=== PATIENT | female | born 1940 | race Caucasian/White ===

== ENCOUNTER 2019-05-23 08:20 | Inpatient (IN) | payer OTHER ==
[~2019-05-23] VITALS: Ht 154.9 cm; Wt 49.1 kg
[2019-05-23 08:23] VITALS: BP 125/52
[2019-05-23] MEDS ORDERED: LIPITOR10 MG PO (08:31)
[2019-05-23] MEDS ORDERED: ARICEPT 5 MG TAB5 MG PO (08:31)
[2019-05-23] MEDS ORDERED: ZOLOFT50 MG PO ×2 (08:32→08:33)
[2019-05-23] MEDS ORDERED: VASOTEC10 MG PO (08:32)
[2019-05-23] MEDS ORDERED: LASIX 20 MG TAB20 MG PO (08:32)
[2019-05-23] MEDS ORDERED: RISPERIDONE 1 MG1 MG PO (08:32)
[2019-05-23] MEDS ORDERED: LOPERAMIDE 2 MG2 M1 PO (08:33)
[2019-05-23] MEDS ORDERED: HALOPERIDOL 1 MG1 MG PO (08:35)
[2019-05-23] MEDS ORDERED: HALOPERIDOL5 MG/1 ML IM (08:36)
[2019-05-23] MEDS ORDERED: LORAZEPAM 22 MG/1 ML IM (08:42)
[2019-05-23] MEDS ORDERED: ATIVAN1 MG PO (08:42)
[2019-05-23 08:43] LABS: URINE BILIRUBIN NEGATIVE (Negative); URINE BLOOD NEGATIVE (Negative); URINE CLARITY CLOUDY; URINE COLOR YELLOW; URINE GLUCOSE-RANDOM* NEGATIVE (Negative); URINE KETONES NEGATIVE (Negative); URINE LEUKOCYTES-REFLEX NEGATIVE (Negative); URINE NITRITE-REFLEX NEGATIVE (Negative); URINE PROTEIN (DIPSTICK) NEGATIVE (Negative); URINE UROBILINOGEN 0.2 E.U./dl (0.2-1.0)
[2019-05-23 09:07] LABS: AMP/METHAMP Negative (Negative); BARBITURATES Negative (Negative); BENZODIAZEPINES Negative (Negative); COCAINE Negative (Negative); METHADONE Negative (Negative); OPIATES Negative (Negative); PCP Negative (Negative)
[2019-05-23 09:10] LABS: ABSOLUTE NEUTROPHILS 5.4 thou/uL (1.4-8.2); BASOPHILS 0.5 % (0.0-2.0); EOSINOPHILS 0.6 % (0.0-3.0); HEMATOCRIT 36.9 % (37.0-47.0); HEMOGLOBIN 12.5 gm/dL (12.0-15.0); LYMPHOCYTES 12.3 % (24.0-44.0); MCH 32.1 pg (26.0-34.0); MCHC 33.9 g/dL (28.0-37.0); MCV 94.7 fL (80.0-100.0); MONOCYTES 9.4 % (1.0-8.0); PLATELET COUNT 129 thou/uL (150-400); POLYS 77.2 % (36.0-66.0); RBC 3.89 mil/uL (4.20-5.00); RDW 13.3 % (10.5-14.5)
[2019-05-23 09:15] LABS: ANION GAP 5 mmol/L (7-16); BUN 24 mg/dL (7-18); CHLORIDE 104 mmol/L (98-107); CO2 33 mmol/L (21-32); CREATININE 0.9 mg/dL (0.6-1.0); GLUCOSE 81 mg/dL (74-106); POTASSIUM 3.4 mmol/L (3.5-5.1); SODIUM 142 mmol/L (136-145)
[2019-05-23 09:21] LABS: ALBUMIN 3.3 g/dL (3.4-5.0); SALICYLATE < 2.8 mg/dL (2.8-20.0); SGOT 14 U/L (15-37); SGPT 19 U/L (30-65); TOTAL PROTEIN 6.4 g/dL (6.4-8.2)
[2019-05-23 09:36] LABS: TOTAL BILIRUBIN 0.2 mg/dL (<0.1-1.0); TROPONIN-I <0.06 ng/mL (<0.06)
--- NOTE | 2019-05-23 09:55 | NUR ---
SPOKE WITH MD, VERBAL ORDER TO D/C 1:1, STATING ITS NOT NECCESSARY AT THIS TIME.FAMILY AT PATIENT BEDSIDE. WILL CONTINUE TO MONITOR.
[2019-05-23 13:16] VITALS: BP 116/53
[2019-05-23 14:32] VITALS: BP 148/68
--- NOTE | 2019-05-23 14:33 | NUR ---
78 YEAR OLD FEMALE ARRIVES TO FLOOR VIA WC FROM ER-ACCOMPNIED BY DAUGHTER GARRET HORVATH. PT REPORTED TO HAVE BEEN BROUGHT TO ER THIS AM BY AMBULANCE FROM [facility] WHERE SHE HAS BEEN RESIDING FOR APPROX 3 WEEKS. PER INFO FROM DAUGHTER AND ED RECORDS PT WAS HAVING AUDITORY AND VISUAL HALLUCINATIONS SEEING BUGS AND DOGS IN ROOM,HEARING MUSIC-LAYED ON FLOOR IN ROOM LAST PM AND REFUSING TO GET UP-GRABBING AT STAFF MEMBERS GLOVES BELIEVING SHE NEEDS THEM BECAUSE SHE IS "INFECTED" AND THAT IS WHY SHE IS HAVING DIARRHEA. DURING ADMIT INTERVIEW OBSERVED TO DROWSY LYING IN BED WITH EYES CLOSED BUT WILL OPEN THEM WITH VERBAL COOMMANDS-PREOCCUPIED WITH DIARRHEA -STATES IS HAVING IT CONSTANTLY HOWEVER DAUGHTER AND NH STAFF DENY STATING SHE HAS HAD REGULAR STOOLS-LAST DIARHEA EPISODE OVER 3 WEEKS AGO-REPORTED TO HAVE BEEN VERY DEPENDENT ON WHO APPROX 2 YEARS AGO-RECENT HOSPITALIZATION AT [facility] FOR CURRENT SYMPTIOMS AND DX WITH DEMENTIA PER DAUGHTER. VS OBTAINED-ORIENTED TO ROOM AND UNIT.
[2019-05-23 20:05] VITALS: BP 115/58
--- NOTE | 2019-05-23 23:41 | NUR ---
Care assumed of patient at 1915: Patient resting in bed at start of shift. Patient assisted to the bathroom, continent of bladder. Patient alert and oriented to person and time. Confusion and disorientation observed. Patient has poor balance and unsteady gait. Was able to ambulate short distance to the bathroom with standby assist x1. Patient compliant with assessment. Denies SI/HI/AH/VH. No delusional behaviors observed. Patient became irritable at times through assessment and interrupted nurse. Patient started to talk about how sex upsets her, men better not come into her room, she feels against rape, etc. Patient was able to be re-directed to join back into conversation. Patient took HS medication without difficulty. Labile mood observed. Declined HS snack. Patient continues to rest quietly in bed.
[2019-05-24 09:14] VITALS: BP 120/69
[2019-05-24 12:19] VITALS: BP 120/69
--- NOTE | 2019-05-24 13:18 | NUR ---
ASSUMED CARE AT 0700 THIS MORNING. PT. VERY CONFUSED, UNABLE TO FIND HER WAY TO THE BATHROOM, DRESS HERSELF OR FIND HER WAY AROUND THE UNIT. SHE ATE MEALS ON THE UNIT, TOOK HER MEDS WITHOUT DIFFICUTLY. HOWEVER, SHE CANNOT FIND HER WAY BACK TO HER ROOM. SHE HAD PACKETS OF JELLY FROM THE KITCHEN AND BLOOD SUGAR CONTROL BOTTLE IN HER POCKETS. CANNOT FOLLOW DIRECTIONS. CONTINUALLY TALKING TO HERSELF. SHE IS CONTINUALLY TALKING ABOUT MEN IN HER ROOM THAT MAY HURT HER. SHE SEEMS PARANOID THAT A MAN WILL HARM HER WHILE SHE IS IN HER ROOM.
--- NOTE | 2019-05-24 13:58 | EKG ---
[address] [place] [address] ELECTROCARDIOGRAM REPORT Name: IDALIA THOMAS Room #: 522A-A ADM IN M.R.#: [id number] Admission: 05/23/19 Attend Phys: Galileo Aggarwal DO Discharge: Date of : 44 Report #: [id number] THIS REPORT FOR: //name// [facility] ED Test Date: 2019-05-23 Test Time: 08:53:33 Pat Name: IDALIA THOMAS Department: Room: [facility] Gender: F Rn Paralegal: caron : 1940 Requested By: Reggie Orozco Order Number: [id number] MD: Carter Self Measurements Intervals [place] Rate: 56 P: 88 MN: 149 QRS: -6 QRSD: 93 T: 42 QT: 448 QTc: 433 Interpretive Statements Sinus rhythm Anterior infarct, old No previous ECG available for comparison Electronically Signed On 05-24-2019 13:58:21 CDT by Carter Self [email or web address] <ELECTRONICALLY SIGNED> By: Carter Self MD, [facility] 05/24/19 1358 [id number] Carter Self MD, FACC /EPI
--- NOTE | 2019-05-24 19:38 | NUR ---
ASSUMED CARE @ 19:15. WANDERING THROUGHOUT THE HALLWAY, QUITE CONFUSED AND FORGETFUL. ASKING ABOUT THE DENTURES THAT HER DAUGHTER TOOK TODAY TO REPAIR. SOMEWHAT CONTINENT WEARS BRIEFS, NEEDS TO BE TOILETED EVERY COUPLE OF HOURS.
[2019-05-24 19:48] VITALS: BP 142/81
--- NOTE | 2019-05-24 23:16 | NUR ---
UNROLLED TOILET PAPER AND PLACED IT ON EVERY SURFACE IN HER BEDROOM, INCLUDING CHAIR, BED, FLOOR, HVAC COUNTER, BATHROOM. WHEN ASKED WHY SHE HAD PUT TOILET PAPER DOWN, SHE SAID IT WAS SLICK AND THAT SHE HAD SHIT AND PISSED. WHEN THIS NURSE SAID THAT I COULD NOT SEE ANYTHING ON THE FLOOR AND CHAIRS, SHE SAID THAT THE BUGS ATE IT. UP OUT OF BED EVERY 30 MINUTES TO THE TOILET, AND UNROLLED TOILET PAPER TO EXCESS AFTER TOILETING. COMPLAINED OF BUGS ON THE FLOOR. OBTAINED AN ORDER FROM [facility] HERNANDEZ FOR 5MG HALODOL Q 8 HOUR P.O. PRN PSYCHOSIS AND COGENTIN P.O. Q 6 HOUR PRN PROPHALAXIS EXTRAPYRAMIDICAL SIDE EFFECT. GIVEN @ 2300 IN ICE CREAM. SITTING AT A TABLE IN THE DAY ROOM. WILL CONTINUE TO MONITOR.
--- NOTE | 2019-05-25 01:34 | NUR ---
WEIGHT 113.5#
[2019-05-25 01:36] VITALS: BP 142/81
--- NOTE | 2019-05-25 02:51 | NUR ---
AT APPROXIMATELY 0230, PATIENT WAS IN ROOM WONDERING AROUND SEEMINGLY FOCUSED ON NEEDING TO USE THE BATHROOM AND INSISTING THAT ANOTHER BED WAS HERS. STAFF ATTEMPTED TO REDIRECT PATIENT WITH NO OUTCOME. SHE BEGAN TO BANG ON THE FURNITURE AND THREATEN STAFF. PRIOR TO THIS INCIDENT, SHE HAD BEEN UP MULTIPLE TIMES DISRUPTING THE MILIEU, PRN HALDOL PO WAS GIVEN WITH NO EFFECT. AGAIN, [facility] RONAK WAS NOTIFIED WITH ORDERS FOR HALDOL 5MG IM Q 6 HOUR PRN FOR AGITATION. ADMINISTERED MEDICATION ORDERED. PATIENT CURRENTLY IN DAY ROOM UNDER OBSERVATION BY STAFF. WILL CONTINUE TO MONITOR.
[2019-05-25 03:30] VITALS: BP 142/81
[2019-05-25 04:30] VITALS: BP 123/60
--- NOTE | 2019-05-25 04:50 | NUR ---
@ 0330 PATIENT WAS SITTING IN A RECLINER IN THE DAY ROOM, EATING GRAHM CRACKERS AND APPLE JUICE/ WATER. THE AIDE STEPPED AWAY FROM THE PATIENT AND WITHIN 2 MINUTES, SHE WAS OBSERVED SITTING ON THE FLOOR IN FRONT OF THE RECLINER. PATIENT ZAIRA RODRIGUEZ, NO BUMPS OR BRUISES NOTED AT THIS TIME, WILL CONTINUE TO MONITOR FOR DEVELOPMENT OF INDICATIONS OF INJURY. Laurel HERNANDEZ NOTIFIED @ 04:15, NO NEW ORDERS. ARPIT HUMZA GROVER NOTIFIED @ 0500 WILL NOTIFY DAUGHTER AT 0600. VS @ 0330 136/71 97 68 97.7 F, 18RR VS @ 04:30 123/60 97.8 F, 85, 95% RA, 14RR
--- NOTE | 2019-05-25 06:08 | NUR ---
SLEPT 2.6 HOURS OVERNIGHT.
--- NOTE | 2019-05-25 06:20 | NUR ---
FAMILY RAJI HORVATH NOTIFIED OF BNON INJURY FALL. 06:15.
[2019-05-25 10:20] VITALS: BP 133/76
--- NOTE | 2019-05-25 16:09 | NUR ---
HAS BEEN VERY RESTLESS/ANXIOUS THROUGHOUT SHIFT-ATTEMPTING TO GET UP OUT OF CHAIR REPEATDLY DESPITE UNSTEADY GAIT AND RECENT FALLS X2-LAP EDUARDO AND CHAIR ALARM ORDERED AND IMPLEMENTED D/T IMPULSIVE,UNSAFE BEHAVIOR-HAS REMOVED LAP EDUARDO SEVERAL TIMES BE SELF-WHEELING WC WITH BRAKES ON INTO PEERS ROOMS OR RAMMING HER WC INTO THEIR SEATS IN DR-UNABLE TO BE REDIRECTED OR DISTRACTED WITH ACTIVITES IE PUZZLE,BLOCKS,MUSIC ETC. HALDOL 5MG GIVEN PO PRN AT O900 AND WAS QUIETER/CALMER/ABLE TO FOLLOW VERBAL COMMANDS UNTIL APPROX 1130-BECAME AGITATED AT [place] THINKING HER FOOD WAS BEING WITHHELD AND ACCUSING STAFF OF NOT FEEDING HER FOR 2 DAYS. CLINICIAN CONTACTED AT 1430 FOR ABOVE NOTED AND O RECEIVED-SEROQUEL [id number] GIVEN AT 1500-REMAINS EXTREMLEY HIGH FALLS RISK AND REQUIRES CONSTANT OBSERVATION TO MAINTAIN SAFTEY
--- NOTE | 2019-05-25 19:07 | H ---
[facility] [place] [address] HISTORY AND PHYSICAL Name: IDALIA THOMAS Room #: 522A-A ADM IN M.R.#: [id number] Admission: 05/23/19 Attend Phys: Galileo Aggarwal DO Discharge: Date of : 44 Report #: [id number] THIS REPORT FOR: //name// CC: Galileo NEGRON Physician staff DATE OF SERVICE: 05/23/2019 INPATIENT PSYCHIATRIC EVALUATION ATTENDING PHYSICIAN: Galileo Aggarwal DO. OUTBOUND SALES CONSULTANT: Hospitalist. REASON FOR ADMISSION: Visual and auditory hallucinations that began a few days prior. HISTORY OF PRESENT ILLNESS: This is a 78-year-old female with established diagnosis of dementia. She was brought to the ED from [facility] and apparently she had been having increased auditory and visual hallucinations. She was recently discharged from [facility] in [place], [place] 05/03/2019. The patient is a [place] of [facility] [employer] [facility] [place], living in [place], [place]. She sees dogs, bugs and hearing music. She reported to the ER she saw hallucinations before being admitted to [facility], in April has a history of dementia, recognizes daughter by name, forgets recent things like what she ate for breakfast, had a cold for a week or two after getting out of the [facility]. She has intermittent diarrhea. She fell 3 days ago, was seen in the [facility] ED. Head scan done at that time. CT of the head, neck and hip and x-ray were negative. There is denial of aggression, physical violence, history of anemia or pain. ALLERGIES: NEFAZODONE. I think also phentermine. REPORTED MEDICATIONS: Aricept 5 mg p.o. daily, Risperdal 1 mg p.o. t.i.d., loperamide 2 mg p.o. daily p.r.n. diarrhea, Haldol 1 mg p.o. q. 4 agitation, lorazepam 1 mg p.o. q. 4 p.r.n. anxiety. REVIEW OF SYSTEMS: From the ED: CONSTITUTIONAL: Denies fever, chills, malaise or unexplained weight change. EYES: Denies eye pain, visual change or discharge. HENT: Denies hearing changes, ear drainage, ear infections, ear pain, neck pain or neck stiffness. RESPIRATORY: Denies cough, shortness of breath, hemoptysis or respiratory distress. CARDIOVASCULAR: Denies chest pain, chest pain with exertion or edema. [address] [address] HISTORY AND PHYSICAL Name: IDALIA THOMAS Room #: 522A-A ADM IN M.R.#: [id number] Admission: 05/23/19 Attend Phys: Galileo Aggarwal, Discharge: Date of : 44 Report #: [id number] GASTROINTESTINAL: Denies abdominal pain, nausea, vomiting or diarrhea. GENITOURINARY: Denies burning, frequency or dysuria. MUSCULOSKELETAL: Denies back pain, joint pain, muscle weakness or myalgias. SKIN: Denies rash. NEUROLOGIC: Denies weakness, headache or loss of consciousness. PSYCHIATRIC: As above. LABORATORY DATA: From the ED, sodium 142, potassium 3.4, chloride 104, bicarbonate 33, BUN 24, creatinine 0.9, GFR 61, glucose 81, calcium 9, magnesium 2. AST 14, ALT 19, alkaline phosphatase 39. Troponin less than 0.06. Total protein 6.4, albumin 3.3. TSH 2.43. White count 7.0, H and H 12.5 and 36.9, platelet count 129, which is low. Urine drug screen negative. Salicylate is negative. Tylenol negative. Urinalysis was negative. IMAGING STUDIES: Chest x-ray done, which was negative. CT of the head showed no acute intracranial process. On interview today, the patient states she at times finds her head falling, landing on the table. She is unsure what that is. She states she has intermittent constipation or diarrhea. MEDICATIONS: From [facility] were atorvastatin 10 mg p.o. every day, Aricept 10 mg p.o. b.i.d., enalapril 10 mg p.o. daily, hypertension, hold if systolic BP less than 120, Lasix 20 mg p.o. daily, risperidone 1 mg p.o. t.i.d., sertraline 150 mg p.o. daily and loperamide 2 mg p.o. daily. MUSCULOSKELETAL: Ambulates with walker, cautious gait. MENTAL STATUS EXAMINATION: This is a well-developed, frail female appearing at least stated age. Attention limited. Concentration limited. Speech is normal rate. Thought process linear and limited. Thought content focussed somatically primarily. No psychomotor agitation. No psychomotor retardation. Denied SI or HI. Denied hopelessness, helplessness, and homicidal intent or plan. Mood and affect were anxious, constricted, congruent. Memory known to be impaired. Insight limited. Judgment impaired. Fund of knowledge below average. FORMULATION: A 78-year-old female admitted for phenomenon of auditory, visual hallucinations. PLAN: Continue famotidine 20 mg p.o. daily, docusate 100 mg p.o. b.i.d., hold if diarrhea. Depakote 750 mg p.o. at bedtime for impulse control, Lasix 20 mg p.o. daily. Regarding the sertraline, we will decrease that to 100 mg daily from 150 for good measure, enalapril 10 mg p.o. daily, potassium chloride has been discontinued, atorvastatin 10 mg p.o. at bedtime. The rest are normal p.r.n.'s [facility] [address] [place] [address] HISTORY AND PHYSICAL Name: IDALIA THOMAS Room #: 522A-A ADM IN [facility]#: [id number] Admission: 05/23/19 Attend Phys: Galileo Aggarwal DO Discharge: Date of : 44 Report #: [id number] ESTIMATED LENGTH OF STAY: 10-14 days. STRENGTHS: She is insured, has supportive family. WEAKNESSES: Multiple recent hospitalizations and advancing disease. <ELECTRONICALLY SIGNED> By: Galileo Aggarwal DO 05/25/19 [id number] Galileo Aggarwal DO /nt
[2019-05-25 19:52] VITALS: BP 121/58
--- NOTE | 2019-05-26 03:31 | NUR ---
RECEIVED RPORT FROM OFFGOING DAY NURSE. ASSUMED CARE @ 19:15. IN W/C WITH LAP EDUARDO IN PLACE. A&O X2 TO PERSON AND ONLY. NOT ORIENTED TO CURRENT DATE, PURPOSE OF HOSPITAL VISIT OR PRESIDENT. REPORTS SEEING INSECTS THAT SHE REPORTS BEING SMALL FLYING SPECK OF A BUG. CONSTANT OBSERVATION REQUIRED TO KEEP PATIENT FROM FALLING OUT OF W/C. CHAIR ALARM IN PLACE WITH ALARM SET. HRRR, LUNGS CTA AND ABD NORMOACTIVE BOWEL SOUNDS. REPEATS OVER AND OVER THAT SHE SHITS AND PISSES ALL DAY AND ALL NIGHT. COALACE HELD. YUANDOL PROVIDED @ 2100 FOR HALLUCINATIONS. EVEN AFTER RETIRING TO BED, CONTINUED TO GET OUT OF BED Q 15 MINUTES AND AMBULATE TO THE TOILET WITH NO OUT PUT NOTED. NEW ORDER FOR SEROQUEL 25 OBTAINED FROM [facility] HERNANDEZ AND PROVIDED @ 0020 ALONG WITH 650 MG TYLENOL FOR 4/10 BACK PAIN. NOTED TO BE SLEEPING WITHIN A 24 MINUTE INTERVAL. BED IN LOW POSITION, BED ALARM SET, WILL CONTINUE TO MONITOR Q 12 MINUTES FOR PATIENT SAFETY.
--- NOTE | 2019-05-26 06:37 | NUR ---
SLEPT 7.2 HOURS.
[2019-05-26 09:31] VITALS: BP 124/65
--- NOTE | 2019-05-26 10:59 | NUR ---
HAS BEEN SITTING IN WHEELCHAIR IN DAYROOM WITH LAP EDUARDO ON-IS NOTED TO BE ATTEMPTING TO GET UP FREQUENTLY DESPITE UNSTEADY GAIT AND RECENT FALL-HAS REMOVED LAP EDUARDO SEVERAL TIMES ALREADY AND AT ONE POINT REMOVED A MALE PEERS LAP BELT. TAKING AND SINGING ALMOST NON-STOP TO SELF -CONVERSATION INCOHERENT AT TIMES-RAMBLING. DENIES C/O PAIN-IS OBSERVED TO BE FOCUSED ON BOWELS AND PERCEIVED SEVERE DIARRHEA STATING MULTIPLE TIMES "IM SHITTING EVERYWHERE" OR "THE SHIT IS EVERYWHERE" WAS ASSISTED TO BATHROOM AND DID HAVE MEDIUM FORMED BM IN TOILET AND STATES "I TOLD YOU I WAS HAVING DIARRHEA" AMBULATED FREQUNTLY AND TOLERATES THIS ACTIVITY FAIR WITH USE OF ROLLER WALKER AND SBA X1
--- NOTE | 2019-05-26 15:14 | NUR ---
CHIQUITA sent referral to [facility] at the [place] per family request.
--- NOTE | 2019-05-26 17:45 | NUR ---
HALDOL 5MG GIVEN PO PRN AT 1400 FOR INCREASED AGITATION AND PARANOID THOUGHTS. BEGAN YELLING "HELP.HELP AND KNOCKING ON BAEZA IN HALLWAY-ANGRY FACIAL EXPRESSION AND LOUD TONE WHEN APPROACHED BY NURSING STAFF STATES "I AM BEING KEPT PRISONER HERE AND MY DAUGHTER DOESN'T KNOW""YOU ARE NOT ATTENDING TO ME"UNABLE TO REASSURE/REDIRECT"HALDOL 5MG GIVEN PO PRN AT 1415-TYLENOL 625MG GIVEN PO PO PRN AT 1430 FOR REPORTED GENERALIZED JOINT PAIN-UNABLE TO RATE STATING ANGRILY "I DON'T KNOW"
[2019-05-26 19:54] VITALS: BP 120/54
--- NOTE | 2019-05-26 19:58 | NUR ---
ASSUMED CARE @ 19:15, IN W/C IN THE DAY ROOM. CHAIR ALARM IN W/C AND ALARM SET. PATIENT TALKS ABOUT NONSENSICAL UNRELATED VERBAGE. REPORTS THAT SHE HAS NON STOP DIARRHEA, WHICH THE DAY NURSE REORTED TO BE INCORRECT. DAY NURSE REPORTS 2 FORMED BM TODAY. WILL CONTINUE TO MONITOR Q 12 FOR PATIENT SAFETY.
--- NOTE | 2019-05-27 00:15 | NUR ---
PROVIDED PRN SEROQUEL 25 FOR PSYCHOSIS AND AGITATION AND TYLENOL 650 FOR BACKPAIN @ 20:30. PATIENT TOILETED BEFORE BED AND DRESSED IN HER NIGHT CLOTHES. IN BED WITH BED IN LOW POSITION AND BED ALARM ON. WILL CONTINUE TO MONITOR Q 12 MINUTES FOR PATIENT SAFETY.
[2019-05-27 01:02] VITALS: BP 120/54
--- NOTE | 2019-05-27 05:46 | NUR ---
SLEPT 6.8 HOURS.
--- NOTE | 2019-05-27 06:45 | NUR ---
PRN SEROQUEL 25 GIVEN FOR ANXIETY AND PSYCHOSIS. TYLENOL 650 PROVIDED FOR 4/10 KNEE PAIN @ 05:15.
[2019-05-27 09:01] VITALS: BP 119/65
--- NOTE | 2019-05-27 11:57 | NUR ---
0700: Report rec from noc shift, care assumed. [id number]: Mobile in w/c, transfers with 1 assist, oriented to name only, hyper verbalization noted, some appropriate and related to conversation, other times rambling words and no topic noted. Feeds self with set-up assistance, takes meds whole w/o difficulty. Attends 0900 therapy group, minimal participation noted, denies pain or discomfort. Cooperative with staff and easily re-directed.
[2019-05-27 20:16] VITALS: BP 134/56
--- NOTE | 2019-05-27 22:27 | NUR ---
PT PROPELING SELF IN W/C. WITH CHAIR ALARM AND LAP BELT ON. PT REQUESTED HS MEDS SO SHE COULD LAY DOWN. PT LAYED IN BED FOR APPROXIMATELY AN HOUR AND WAS UP TO URINATE X 2. PT THEN IN W/C IN DAY ROOM TO WATCH TV. PT STATED SHE DOES NOT LIKE HER BED. PT CALM, [facility] CONTACT, PT SHARED STORY OF LIVING IN [facility] AND THAT SHE HAD RED HAIR AND FRECKLES, THAT HER DAUGHTER HAS BLACK HAIR. PT REQUESTED A PAIR OF SCISSORS TO TRIM HER GROIN AREA WHILE SHE WAS BEING ASSISTED TO THE RESTROOM.
--- NOTE | 2019-05-27 23:29 | NUR ---
PT RESTLESS, PROPELING SELF IN KURTZ AND INTO PEERS ROOM OR DAYROOM, TALKING TO HERSELF, PICKING AT HER NAILS, YELLING AT TV. TOLD STAFF SHE DOES NOT HAVE A PLACE TO LIVE AND HER BELONGINGS ARE IN STORAGE AND THEY ARE MAKING HER SELL THEM. PRN PROVIDED FOR INCREASED ANXIETY/RESTLESS.
[2019-05-28 08:44] VITALS: BP 134/68
--- NOTE | 2019-05-28 16:53 | NUR ---
SW sent a referral to [facility] concerning pt being accepted into [facility]. CHIQUITA will follow-up with the [facility] on tomorrow.
--- NOTE | 2019-05-28 17:22 | NUR ---
ASSUMED CARE AT 0700 THIS MORNING. PT. UP ON THE UNIT. SHE CONTINUES TO BE CONFUSED. SHE IS SITTING IN A WHEELCHAIR SHE IS UNSTEADY ON HER FEET. SHE ATE ON THE UNIT, TOOK MEDS WITHOUT DIFFICULTIES. SHE DID ATTEND GROUPS. NO S/S SI/HI OR AVH NOTED TODAY. SHE HAS BEEN PLEASANT UPON APPROACH BUT IS ONLY ORIENTED X 1 OR 2.
[2019-05-28 20:02] VITALS: BP 125/52; BP 97/51
--- NOTE | 2019-05-28 21:58 | NUR ---
Propeling self in w/c through halls and day room, talking to herself, clear speech, smiling, good eye contact. Complliant with hs meds and snack. w/c with chair alarm. Steady gait with transfers.
[2019-05-29 19:22] VITALS: BP 136/76
--- NOTE | 2019-05-29 21:34 | NUR ---
ASSUMED CARE @ 19:15. IN W.C. IN DAY ROOM, PEOPLE WATCHING WHICH SHE SAYS IS MORE INTERESTING THAN THE BASEBALL GAME. HRRR, LUNGS CTA, ABD NX 4Q. DENIES SI AND HI. DENIES DEPRESSION AND HALLUCINATIONS. TOOK HS MEDS WHOLE WITH WATER. A&OX2. WHEN ASKED A QUESTIONS ANSWERS IN NONSENSE RAMBLING SPEACH. WILL CONTINUE TO MONITOR Q 12 MINUTES.
[2019-05-29 23:51] VITALS: BP 136/76
--- NOTE | 2019-05-30 02:42 | NUR ---
IN RECLINER IN THE DAY ROOM, AWAKE AND WATCHING TV, TALKING TO STAFF, THEN SLEEPING AND AWAKE @ 0230. WILL CONTINUE TO MONITOR FOR PATIENT SAFETY.
--- NOTE | 2019-05-30 06:30 | NUR ---
slept 1.2 hours overnight.
[2019-05-30 08:03] VITALS: BP 136/67
--- NOTE | 2019-05-30 12:13 | NUR ---
Date of Admission: 05/23/19 Date of Activity Therapy Assessment: 05/26/19 Activity Goal: Increase reality orientation Initial Goal: 1 Group activity/day Weekly progress towards goal: On track Group participation level: Moderate Behaviors observed: Patient attends a minimum of one recreation group per day. Her level of concentration hinders her participation at times (wandering in and out, talking over.) Patient often makes disorienting statements, but none exhibiting ss of hallucinations. Plan: No change towards goal
[2019-05-30 16:03] VITALS: BP 136/67
--- NOTE | 2019-05-30 17:13 | NUR ---
ASSUMED CARE AT 0700 THIS MORNING. PT. IN W/C SHE IS UNSTEADY ON HER FEET. SHE IS ORIENTED TO NAME ONLY. SHE IS ALWAYS BUSY MOVING HER W/C ALL OVER THE UNIT. SHE WILL TELL STAFF WHEN SHE HAS TO GO TO THE BATHROOM AND DOES GO WITH ONE STAND BY ASSIST. SHE HAS BEEN PLEASANT WITH STAFF. TOOK MEDS WITHOUT PROBLEMS NOTED. ATTENDED GROUPS BUT INTERACTS ONLY SOME. DENIES SI/HI AND NOT AVH NOTED TODAY. AT MEALS ON THE UNIT.
[2019-05-30 19:24] VITALS: BP 133/73
--- NOTE | 2019-05-31 01:02 | NUR ---
RECEIVED REPORT FROM OFFGOING DAY NURSE, ASSUMED CARE @ 19:15. IN W/C WITH CHAIR PERSONAL ALARM IN SEAT. PROPELLS SELF THROUGHOUT THE DAY ROOM AND IN THE HALLS. HAS NO COMPREHENSION OF PERSONAL SAFETY, STANDING AND AMBULATING. ALERT, AND ORIENTED TO SELF ONLY. 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 HRRR, LUNGS CTA, ABD NORMOACTIVE, REPORTS A NORMAL BM TODAY, REPORTS NO DIARRHEA. WENT TO BED AND TOOK HS MEDS AND PRN SEROQUEL. WILL CONTINUE TO MONITOR Q 12 MINUTES FOR PATIENT SAFETY. BED ALARM ON, BED IN LOW POSITION.
[2019-05-31 01:56] VITALS: BP 133/73
--- NOTE | 2019-05-31 02:16 | NUR ---
SLEEPING SOUNDLY, EYES CLOSED, RESPIRATIONS EVEN AND UNLABORED. BED IN LOW POSITION, BED ALARM SET, ROUNDING Q 12 MINUTES FOR PATIENT SAFETY.
[2019-05-31 05:34] LABS: CALCIUM 8.5 mg/dL (8.5-10.1); CREATININE 0.9 mg/dL (0.6-1.0); POTASSIUM 4.3 mmol/L (3.5-5.1)
[2019-05-31 05:57] LABS: HEMOGLOBIN 12.7 gm/dL (12.0-15.0); MCH 31.9 pg (26.0-34.0); MCHC 33.5 g/dL (28.0-37.0); RDW 12.8 % (10.5-14.5); WBC 9.3 thou/uL (4.0-11.0)
--- NOTE | 2019-05-31 06:10 | NUR ---
SLEPT 7.6 HOURS OVERNIGHT 05/30/19.
[2019-05-31 07:40] VITALS: BP 123/69
--- NOTE | 2019-05-31 11:17 | NUR ---
SW met with treatment team to discuss with pt been d/c to [facility] on June 01, 2019 at 11:30am. SW will schedule appointment with gynceologist at [facility]. SW schedule appointment for June 13, 2019 at 12:30pm. SW will follow-up. SW mention to the pt that according to her insurance company that she can do therapy, and meeti with psychiatrist through negar on her phone. Pt stated that she will download the negar, and have continuance care.
--- NOTE | 2019-05-31 11:26 | NUR ---
CHIQUITA met with the Treatment team concerning pt d/c to [facility] on June 01, 2019 at 11:30. CHIQUITA explained to the nursing that pt will need to be ready for d/c tomorrow. Pt will be transported by her daughter.
[2019-05-31 13:20] VITALS: BP 123/68
--- NOTE | 2019-05-31 14:47 | NUR ---
ASSUMED CARE AT 0700 TODAY SHE REMAINS IN A W/C DUE TO AN UNSTEADY GAIT. DID WALK TODAY WITH PT. PT. THOUGHT SHE WAS AMBULATING WELL AND DID NOT ALWAYS REQUIRE A W/C. SHE DID TAKE HER MEDICATIONS WHOLE AND WITHOUT PROBLEMS NOTED. SHE ATTENDED GROUPS AND ATE ON THE UNIT. DENIES SEEING BUGS OR OTHER VISUAL HALLUCINATIONS. SHE DENIES SI/HI. HAS NOT BEEN INCONTINENT THROUGHOUT THE DAY TODAY.
[2019-05-31 19:08] VITALS: BP 140/65
--- NOTE | 2019-06-01 06:20 | NUR ---
TOOK HS MEDS WHOLE WITH WATER, SEROQUEL PRN PROVIDED AT HS. IN BED ALL NOC, UP TO TOILET X2 WITH ASSIST. SLEPT 6.4 HOURS.
[2019-06-01 06:52] VITALS: BP 125/67
[2019-06-01 09:04] VITALS: BP 125/67
--- NOTE | 2019-06-01 10:57 | NUR ---
0710: Report rec from noc shift, care assumed. [id number]: Transfers self from bed to standing, uses walker for ambulation, gait steady/slow. Feeds self with set up assistance, appetite fair, takes meds whole w/o difficulty. Mobile throughout common area, socializes with other pts and with staff, confused to surroundings, oriented to name only, forgetful to recent events. Recalls history of family and working history. Cooperative with staff, cheerful, smiles alot at staff.
[2019-06-01] MEDS ORDERED: LIPITOR10 MG PO (11:21)
[2019-06-01] MEDS ORDERED: DEPAKOTE ER250 MG PO (11:23)
[2019-06-01] MEDS ORDERED: VASOTEC10 MG PO (11:23)
[2019-06-01] MEDS ORDERED: SEROQUEL 25 MG25 M1 PO (11:24)
[2019-06-01] MEDS ORDERED: ZOLOFT100 MG PO (11:24)
[2019-06-01] MEDS ORDERED: LASIX 20 MG TAB20 MG PO (11:24)
[2019-06-01] MEDS ORDERED: COLACE 100 MG100 MG PO (11:25)
[2019-06-01] MEDS ORDERED: PEPCID20 MG PO (11:25)
--- NOTE | 2019-06-03 17:06 | D ---
[facility] [place] [address] DISCHARGE SUMMARY Name: IDALIA THOMAS Room #: 522A-A [facility] IN M.R.#: [id number] Admission: 05/23/19 Attend Phys: Galileo Aggarwal DO Discharge: 06/01/19 Date of : 44 Report #: [id number] THIS REPORT FOR: //name// CC: Galileo NEGRON Physician staff DATE OF SERVICE: 06/01/2019 INPATIENT PSYCHIATRIC DISCHARGE SUMMARY ATTENDING PHYSICIAN: Galileo Aggarwal DO [employer] DES[employer]KER: Jaclyn Menezes MD DISCHARGE DIAGNOSES: Major neurocognitive disorder, likely due to Alzheimer's disease with behavioral disturbance, improved. MEDICAL COMORBIDITIES: Include hypokalemia, resolved; thrombocytopenia, 129 was the platelet count; hypertension, well controlled; hyperlipidemia, on atorvastatin. She is known high fall risk. DISCHARGE PLAN: Discharged to the [facility], I believe in [place], [place]. The patient will get memory care there. DISCHARGE MEDICATIONS: As follows: Atorvastatin 10 mg p.o. at bedtime for hyperlipidemia, enalapril 10 mg p.o. daily for hypertension, Depakote ER 750 mg p.o. at bedtime for mood stabilization, sertraline 100 mg p.o. daily for depression, Seroquel 25 mg p.o. q. 6 hours p.r.n. for anxiety and agitation, Lasix 20 mg daily p.r.n. for edema, docusate 100 mg p.o. b.i.d. for bowel motility, and famotidine 20 mg p.o. daily for bowel prophylaxis. LABORATORY DATA: This admission, most recent CBC on 05/31/2019 was white count 9.3, hemoglobin and hematocrit 12.7 and 38.3, platelet count 159 that was well improved from 129 on admission. Regarding electrolytes, her electrolytes improved as well. Sodium 143, potassium 4.3, chloride 107, bicarbonate 28, BUN 32. GFR 61. So the slight hypokalemia, resolved. Urinalysis was negative on 05/28/2019. Toxicology: Depakote level on 05/28/2019 was 69, which is in therapeutic range. Her admission UDS was negative. Urine drug screen was negative. The patient's psychiatric and medical care will be taken care at the [facility]. REASON FOR ADMISSION: She was presented to the ED with family. She had [facility] [address] [place] [address] DISCHARGE SUMMARY Name: IDALIA THOMAS Room #: 522A-A [facility] IN [facility].#: [id number] Admission: 05/23/19 Attend Phys: Galileo Aggarwal DO Discharge: 06/01/19 Date of : 44 Report #: [id number] recently been at [facility]. Apparently, she was having visual and auditory hallucinations that began a few days prior. HOSPITAL COURSE: The patient was admitted to the Geriatric Psych Unit. She had a pretty quiescent course. Given her sensitivity to neuroleptics, I decided to approach ____ problems with Depakote. The visual and auditory hallucinations issues basically self resolved, which does raise the possibility of Lewy body disease given her sensitivity to neuroleptics. She is quite advanced in her dementia with a poor prognosis. Once she stops eating, hospice services should be entertained. PHYSICAL EXAMINATION: VITAL SIGNS: On the day of discharge, temperature 36.6, pulse 58, respirations 14, BP 125/67, O2 sat 97%. MUSCULOSKELETAL: She is wheelchair bound, nonambulatory, appropriately seated. MENTAL STATUS EXAMINATION: This is a well-developed, fairly nourished female appearing stated age. Attention impaired. Concentration impaired. Speech is normal rate. Thought process nonlinear. Thought content, often nonsensical, but able to shake her hands and say "hi." No psychomotor agitation, no psychomotor retardation. Mood and affect was congruent and euthymic. Insight impaired. Judgment impaired. Memory noted to be impaired. Fund of knowledge well below average. Prognosis for this patient is guarded to poor given her age, advanced dementia, and medical comorbidities. <ELECTRONICALLY SIGNED> By: Galileo Aggarwal DO 06/03/19 1706 [id number] Galileo Aggarwal DO /nt
== END 2019-06-01 12:00 | DRG 57 ==
LOC: ER 08:20 → EROBS 10:44 → SBH 10:44
PROVIDERS: Emergency Medicine; Internal Medicine; ADMIT Psychiatry & Neurology Psychiatry
DX: G30.9 Alzheimer's disease, unspecified (principal); F02.81 Dementia in other diseases classified elsewhere, unspecified severity, with behavioral disturbance; F01.50 Vascular dementia, unspecified severity, without behavioral disturbance, psychotic disturbance, mood disturbance, and anxiety; I10 Essential (primary) hypertension; F32.9 Major depressive disorder, single episode, unspecified; E78.5 Hyperlipidemia, unspecified; E87.6 Hypokalemia; D69.6 Thrombocytopenia, unspecified; Z88.8 Allergy status to other drugs, medicaments and biological substances; Z90.49 Acquired absence of other specified parts of digestive tract; Z98.49 Cataract extraction status, unspecified eye; Z79.899 Other long term (current) drug therapy
CPT/HCPCS: 10880

== ENCOUNTER 2020-06-24 20:55 | Emergency (ER) | payer OTHER ==
[~2020-06-24] VITALS: Ht 165.1 cm; Wt 72.6 kg
[~2020-06-24 20:55] MED LIST: ARICEPT 5 MG TAB5 MG PO; ATIVAN1 MG PO; COLACE 100 MG100 MG PO; DEPAKOTE ER250 MG PO; HALOPERIDOL 1 MG1 MG PO; HALOPERIDOL5 MG/1 ML IM; LASIX 20 MG TAB20 MG PO; LIPITOR10 MG PO; LOPERAMIDE 2 MG2 M1 PO; LORAZEPAM 22 MG/1 ML IM; PEPCID20 MG PO; RISPERIDONE 1 MG1 MG PO; SEROQUEL 25 MG25 M1 PO; VASOTEC10 MG PO; ZOLOFT100 MG PO; ZOLOFT50 MG PO
[2020-06-24] MEDS ORDERED: TYLENOL325 MG PO (22:33)
[2020-06-24] MEDS ORDERED: ZUPLENZ4 MG PO (22:34)
[2020-06-24] MEDS ORDERED: [UNRECOGNIZED DRUG - OTHER] EA. EYE (22:35)
[2020-06-25 00:47] VITALS: BP 147/63
== END 2020-06-25 00:48 ==
LOC: ER 20:55
DX: M25.551 Pain in right hip (principal); R42 Dizziness and giddiness; E78.5 Hyperlipidemia, unspecified; Z79.899 Other long term (current) drug therapy; Z88.8 Allergy status to other drugs, medicaments and biological substances; W06.XXXA Fall from bed, initial encounter; Y93.89 Activity, other specified; Y92.89 Other specified places as the place of occurrence of the external cause; Y99.8 Other external cause status